=== PATIENT | female | born 1945 | race Caucasian/White ===

== ENCOUNTER → 2016-06-20 | Emergency (ER) | payer MEDICARE, OTHER ==
[~2016-06-20] VITALS: Ht 165.1 cm; Wt 82.4 kg
[~2016-06-20] MED LIST: ASPI-860 PO; BIMA2.5D4 OU; CHOL100061 PO; CHOL500050 PO; DOCU-243 PO; FNT25TD TD; HYDR-3702 PO; HYDR-3811 PO; IBP200T PO; INSU100V2 SC; INSU100V2 SQ; INSU100V32 SQ; INSU300I SQ; LEVO500T16 PO; LEVO75TA4 PO; LSNP20T PO; METO-71 PO; METOPROLOL PO; MIRALAX 17 GM P17 GM PO; MULT-954 PO; OXYC1TAB87 PO; RANI150T15 PO; SIMV40TA2 PO; TRAM-25 PO; VENL75TA2 PO
--- OUTSIDE RECORDS SUMMARY | 2016-06-20 14:01 | XMS REPORT | Continuity of Care Document ---
Author Author [facility] Address Unknown Phone Unavailable Care Team Providers Care Correctional Casework Specialist Name Role Phone Alvaro Cole MD PCP [phone] Insurance Providers Payer Name Policy Number Subscriber Name Relationship Medicare A And B [id number] Cris Estes 19 Self / Same As Patient Other1 [id number] Cris Estes Self / Same As Patient Advance Directives Directive Response Recorded Date/Time Advanced Directives No 05/30/16 10:50am Type Durable Power of Buggyman 02/22/14 8:40am Chief Complaint and Reason for Visit Chief Complaint Cardiac Complaint Reason for Visit Nausea & vomiting Chest discomfort Problems Active Problems Medical Problem Onset Date Status Chest discomfort Unknown Acute Diabetes Unknown Chronic Diabetes type 1, uncontrolled Unknown Acute Fracture ~02/14/2014 Acute Hypertension Unknown Chronic Hypothyroidism Unknown Acute Intractable back pain 02/14/2014 Acute Nausea & vomiting Unknown Acute Pain in pelvis ~02/14/2014 Acute Pelvic fracture ~02/14/2014 Acute Medications Current Home Medications Medication Dose Units Route Directions Days/Qty Instructions Start Date Levothyroxine Sodium (Synthroid) 75 Mcg 75 Mcg ORAL Daily 01/25/14 Lisinopril (Zestril) 20 Mg 20 Mg ORAL Twice A Day 01/25/14 Simvastatin (Zocor) 40 Mg 40 Mg ORAL Bedtime 01/25/14 Venlafaxine Hcl 75 Mg 75 Mg ORAL Daily 01/25/14 Aspirin 81 Mg 81 Mg ORAL Bedtime 01/25/14 Bimatoprost 2.5 Ml 1 Drop OPTHALMIC Bedtime 01/25/14 Metoprolol Tartrate 100 Mg 100 Mg ORAL 1AM, 1/2 Pm 01/26/14 Ibuprofen (Motrin) 200 Mg 400 Mg ORAL As Needed 01/30/14 Insulin Lispro (Insulin Humalog) 100 Unit/1 Ml 10 Unit Sub-Q Three Times Daily With Meals 04/27/14 Cholecalciferol (Vitamin D3) 5,000 Unit 5,000 Unit ORAL Daily Insulin Glargine,Hum.rec.anlog 300 Unit/1 Ml 24 Unit Sub-Q Am Past Home Medications Medication Directions Ordered Status Insulin Glargine,Hum.rec.anlog 100 Unit/1 Ml Vial, 22 Unit Sub-Q Am 01/25/14 Discontinued [Metoprolol] , 100 Mg Oral Twice A Day 01/25/14 Discontinued Ranitidine Hcl 150 Mg Tablet, 150 Mg Oral Daily 01/28/14 Discontinued Cholecalciferol (Vitamin D3) 1,000 Unit Tablet, 2000 Unit Oral Daily Discontinued Tramadol Hcl 50 Mg Tablet, 50 Mg Oral Every 6 Hours as needed for Pain Discontinued Acetaminophen/Hydrocodone Bitart 1 Tab Tab, 1 Tab Oral Every 4HRS as needed for Pain 01/30/14 Discontinued Insulin Lispro (Insulin Humalog) 1 Unit/0.01 Ml Soln, 12 Unit Subcutaneous Daily@1200 01/30/14 Discontinued Insulin Lispro (Insulin Humalog) 1 Unit/0.01 Ml Soln, 12 Unit Subcutaneous Daily@1800 01/30/14 Discontinued Insulin Lispro (Insulin Humalog) 1 Unit/0.01 Ml Soln, 10 Unit Subcutaneous Daily@0800 01/30/14 Discontinued Oxycodone/Acetaminophen 1 Tab Tablet, 1 Tab Oral Twice A Day 02/22/14 Discontinued Fentanyl 25 Mcg Patch, 25 Mcg Transdermal Every 72 Hours 02/22/14 Discontinued Acetaminophen/Hydrocodone Bitart 1 Tab Tab, 1 Tab Oral Every 6 Hours as needed for Pain 02/22/14 Discontinued Polyethylene Glycol 17 Gm Pack, 17 Gm Oral Daily 02/22/14 Discontinued Docusate Sodium 100 Mg Cap, 100 Mg Oral Twice A Day 02/22/14 Discontinued Hydrocodone Bit/Acetaminophen 1 Each Tablet, 1 Each Oral As Needed for Pain 04/27/14 Discontinued Insulin Lispro (Insulin Humalog) 100 Unit/1 Ml Vial, 8-10 Unit Sub-Q With Supper 04/27/14 Discontinued Social History Social History Problem Response Recorded Date/Time Onset Date Status Exposure to occupational hazards No 02/22/2014 8:40am Query Response Start Date Stop Date Smoking Status Current some day smoker Hospital Discharge Instructions No hospital discharge instructions. Plan of Care Discharge Date 05/30/16 12:47pm Disposition 01 HOME OR SELF-CARE Condition at Discharge Stable Instructions/Education Provided Chest Pain (DC) Prescriptions See Medication Section Referrals Alvaro Cole MD - Additional Instructions/Education Some of your test results may not be complete prior to your leaving the Emergency Department. The Emergency Department is not authorized to give test results over the phone. Please contact the doctor's office listed in this packet of information for your final results. Follow up with your primary care physician or return to the Emergency Department for worsening or worrisome symptoms. * Emergency Department phone number: [phone], x [phone]* MEDICAL RECORD If you need copies of your X-rays, call [phone]. If you need copies of your medical record, including lab results, a signed authorization for release of records will be required. A telephone call for release of Health Information is not allowed. BILLING Billing can sometimes be confusing and frustrating. To help avoid confusion in the future, please take a moment to acquaint yourself with the billing parties for services. SERVICE BILLING [facility] Physician Services [facility] X-[facility] Patients will receive bills for services from the appropriate provider. If you have any questions about your [facility] bill, our staff will be happy to assist you. Please call [phone], and ask for the billing department. THANK YOU for choosing [facility] as your emergency care provider! Care Plan and Goals ~~Discharge Care Plan~~ Problem: Abdominal pain Goal: Decreased level of pain. Return to usual activities. Instructions: Take medication(s) as directed; follow up with primary care physician as directed; follow patient home care instructions. Functional Status No functional status results. Allergies, Adverse Reactions, Alerts Allergen Type Severity Reaction Status Last Updated Sulfa (Sulfonamide Antibiotics) Allergy Unknown UNKNOWN Active 05/30/16 Codeine Adverse Reaction Unknown NAUSEA/VOMITING Active 05/30/16 Nitrofurantoin Allergy Unknown HIVES, ITCHING Active 05/30/16 Amoxicillin Allergy Unknown HEAD AND FACE SWELLING Active 05/30/16 Metformin Adverse Reaction Unknown ABDOMINAL DISCOMFORT, DIARRHEA Active 05/30/16 Immunizations Name Given Type Status Date Pneumonia Vaccine Received if Current 12/10/12 Historical Historical Date Influenza Vaccine Received if Current 04/18/14 Historical Historical Vital Signs Acute Vital Signs Vital Response Date/Time Temperature (Fahrenheit) 98.0 05/30/2016 1:10pm Pulse 84 bpm 05/30/2016 1:10pm Respirations 16 05/30/2016 1:10pm Height 5 ft 0 in Weight 176 lb Body Mass Index 34.0 kg/m^2 Results Laboratory Results Test Name Result Units Flags Reference Collection Date/Time Result Date/ Time Comments White Blood Count 10.96 10^3uL 4.0-11.0 05/30/2016 10:50am 05/30/2016 11:07am Red Blood Count 4.82 10^6uL 4.00-5.00 05/30/2016 10:50am 05/30/2016 11: 07am Hemoglobin 14.8 g/dL 12.0-15.5 05/30/2016 10:50am 05/30/2016 11:07am Hematocrit 43.60 % 35.00-45.00 05/30/2016 10:50am 05/30/2016 11:07am Mean Corpuscular Volume 91 FL 80-100 05/30/2016 10:50am 05/30/2016 11: 07am Mean Corpuscular Hemoglobin 30.7 PG 26.0-34.0 05/30/2016 10:50am 2015 11:07am Mean Corpuscular Hemoglobin Concent 33.9 g/dL 31.0-37.0 05/30/2016 10: 50am 05/30/2016 11:07am Red Cell Distribution Width 13.0 % 11.8-15.6 05/30/2016 10:50am 2015 11:07am Platelet Count 193 10^3uL 150-450 05/30/2016 10:50am 05/30/2016 11: 07am Mean Platelet Volume 10.9 FL H 6.0-9.5 05/30/2016 10:50am 05/30/2016 11: 07am Neutrophils (%) (Auto) 76 % H 51-67 05/30/2016 10:50am 05/30/2016 11: 07am Lymphocytes (%) (Auto) 14 % L 20-46 05/30/2016 10:50am 05/30/2016 11: 07am Monocytes (%) (Auto) 6 % 3-11 05/30/2016 10:50am 05/30/2016 11:07am Eosinophils (%) (Auto) 4 % 0-4 05/30/2016 10:50am 05/30/2016 11:07am Basophils (%) (Auto) 0 % 0-2 05/30/2016 10:50am 05/30/2016 11:07am Neutrophils # (Auto) 8.4 X10^3 05/30/2016 10:50am 05/30/2016 11:07am Lymphocytes # (Auto) 1.6 X10^3 05/30/2016 10:50am 05/30/2016 11:07am Monocytes # (Auto) 0.6 X10^3 05/30/2016 10:50am 05/30/2016 11:07am Eosinophils # (Auto) 0.4 10^3uL 05/30/2016 10:50am 05/30/2016 11: 07am Basophils # (Auto) 0.0 10^3uL 05/30/2016 10:50am 05/30/2016 11:07am Prothrombin Time 11.0 SEC 10.0-12.5 05/30/2016 10:50am 05/30/2016 11: 19am Prothromb Time International Ratio 1.0 0.8-1.4 05/30/2016 10:50am 11:19am D-Dimer 571 ng/mL *H 0-500 05/30/2016 10:50am 05/30/2016 11:19am Results called to [facility] who read back the results. Called by Bella Shepherd at [phone] Sodium Level 143 mmol/L # 135-150 05/30/2016 10:50am 05/30/2016 11:20am Potassium Level 3.8 mmol/L 3.5-5.1 05/30/2016 10:50am 05/30/2016 11: 20am Chloride Level 103 mmol/L 98-108 05/30/2016 10:50am 05/30/2016 11:20am Carbon Dioxide Level 25 mmol/L 22-29 05/30/2016 10:50am 05/30/2016 11: 20am Anion Gap 18.8 MEQ/L H 3-15 05/30/2016 10:50am 05/30/2016 11:20am Blood Urea Nitrogen 13 mg/dL 7-18 05/30/2016 10:50am 05/30/2016 11: 20am Creatinine 0.82 mg/dL 0.6-1.2 05/30/2016 10:50am 05/30/2016 11:20am BUN/Creatinine Ratio 16 10-20 05/30/2016 10:50am 05/30/2016 11:20am Estimat Glomerular Filtration Rate 83.6 05/30/2016 10:50am 2015 11:20am Estimated GFR (Non- 69.1 05/30/2016 10:50am 2015 11:20am Glucose Level 391 mg/dL H 70-110 05/30/2016 10:50am 05/30/2016 11:20am Calculated Osmolality 293 mosm/L 280-300 05/30/2016 10:50am 05/30/2016 11:20am Calcium Level 9.4 mg/dL 8.8-10.8 05/30/2016 10:50am 05/30/2016 11:20am Calcium/Ionized Calcium Ratio 4.1 mg/dL 3.8-4.6 05/30/2016 10:50am 11:20am Total Bilirubin 0.5 mg/dL 0.1-1.0 05/30/2016 10:50am 05/30/2016 11: 20am Alkaline Phosphatase 138 U/L H 38-126 05/30/2016 10:50am 05/30/2016 11: 20am Aspartate Amino Transf (AST/SGOT) 27 U/L 15-37 05/30/2016 10:50am 05/30 11:20am Alanine Aminotransferase (ALT/SGPT) 29 U/L L 30-65 05/30/2016 10:50am 11:20am Troponin I < 0.012 ng/mL 0.010-0.080 05/30/2016 10:50am 05/30/2016 11: 30am Total Protein 7.3 g/dL 6.4-8.5 05/30/2016 10:50am 05/30/2016 11:20am Albumin 4.4 g/dL 3.4-5.0 05/30/2016 10:50am 05/30/2016 11:20am Albumin/Globulin Ratio 1.517 1.1-1.8 05/30/2016 10:50am 05/30/2016 11 :20am Procedures No known history of procedures. Encounters Encounter Location Arrival/Admit Date Discharge/Depart Date Attending Provider Departed Emergency Room [facility] 05/30/16 10:46am 05/30/16 12: 47pm YUNIOR URBAN MD Recent Diagnosis
[2016-06-20 14:39] LABS: BILIRUBIN,URINE Negative (Negative); CLARITY,URINE Cloudy; GLUCOSE, URINE (UA) Negative (Negative); LEUKOCYTE ESTERASE ,URINE 2+ (Negative); PH,URINE 5.5 (5.0 - 8.0); UROBILINOGEN,URINE 0.2 mg/dL (0.2-1.0)
[2016-06-20 14:45] LABS: COLOR,URINE Dark Yellow
[2016-06-20 14:50] LABS: RBC,URINE >100 /HPF; URINE CENTRIFUGED VOLUME 10 mL
[2016-06-20 15:16] VITALS: BP 124/63
== END | disposition home or self-care (01) ==
LOC: ED 13:58
DX: N39.0 Urinary tract infection, site not specified (principal)
CPT/HCPCS: 81003; 81015; 87088; 99282; 99283